=== PATIENT | male | born 1960 | race Caucasian/White ===

== ENCOUNTER 2016-08-27 01:35 | Day surgery (SDC) | payer OTHER ==
[2016-08-27] VITALS (18 sets, daily range): BP systolic 107–137; BP diastolic 70–87; PULSE 57–82; RESP 12–20; O2SAT 95–100
[~2016-08-27] VITALS: Ht 190.5 cm; Wt 84.0 kg
[~2016-08-27 01:35] MED LIST: ASPI-973 PO; BENZ0.5T3 PO; HAL5 PO; LORA2TAB PO; METO25TA99 PO; PYR50 PO; RES30 PO; SIMV80TA4 PO; THIO2CAP2 PO; TRAZ-115 PO; ZIPR40CA24 PO
[2016-08-27] MEDS ORDERED: 0.9% Sodium Chloride 1,000 ML ONE (06:27)
[2016-08-27 07:09] LABS: BASOPHILS % (AUTO) 0.4 % (0-3); MONOCYTES % (AUTO) 10.7 % (4-12); Mean Corpuscular Hemoglobin 31.7 pg (27.0-35.0); Mean Corpuscular Volume 90.6 fL (81-100); NEUTROPHILS % (AUTO) 61.4 % (40-74); Platelet Count 196 bil/L (150-400)
[2016-08-27 07:23] LABS: INR 1.03 ratio
--- NOTE | 2016-08-27 07:57 | NUR ---
YIN Patient to [facility] bed 3 at 0700. Mother at bedside. Patient denies pain. HL X 2 placed and labs obtained. ECG 12 complete. Consent to be obtained pr MD. History and medications reviewed. Pre-procedure teaching done and questions answered.
[2016-08-27] MEDS ORDERED: Heparin 1,000 Units/500 mL NS Premix IV ONE (08:35)
[2016-08-27] MEDS ORDERED: fentaNYL-PF 50 mCg/mL 2 mL Inj ONE (08:36)
[2016-08-27] MEDS ORDERED: Heparin 5,000 Units/500 mL NS Premix IV ONE (08:37)
[2016-08-27] MEDS ORDERED: Nitroglycerin 50,000 mcg/250 mL D5W Premix IV ONE (09:05)
[2016-08-27] MEDS ORDERED: Heparin 1,000 Unit/mL 10 mL Inj ONE (09:05)
--- NOTE | 2016-08-27 10:41 | CS94 ---
[place] [address] DIAGNOSTIC CARDIAC CATHETERIZATION PATIENT: LORI VALE : 1960 MR#: [id number] ADMIT: 08/27/2016 JOB ID: [id number] SERVICE DATE: 08/27/2016 PROCEDURE: 1. Left heart catheterization. 2. Selective left and right coronary angiography. 3. Left ventricular hemodynamics. INDICATIONS: The patient came in with atypical chest pain with a known history of coronary artery disease, status post NE, status post angioplasty of the right coronary artery. The patient underwent stress testing, which demonstrated a reversible perfusion defect in the anterior, anteroseptal and septal segments. Therefore, the patient was scheduled for coronary angiography. CONSENT: The patient was explained the risks, benefits and alternatives of the procedure. Informed signed consent was obtained and placed in the chart. The patient verbalized understanding prior to proceeding with the procedure. DESCRIPTION OF PROCEDURE: The patient was brought to the catheterization laboratory and placed on the catheterization table. Both groins were prepped and draped in the usual sterile manner. Then, 1% lidocaine was infiltrated into the right groin area. Subsequently, a 6-Romansh arterial sheath was placed in the right femoral artery using a standard modified Seldinger technique. FL4 catheter was used to engage the left main coronary artery. Multiple views of left coronary artery were obtained in multiple projections. FR4 catheter was used to engage the right coronary artery. Multiple views of right coronary artery were obtained in multiple projections. A pigtail catheter was advanced over the guidewire and placed in the left ventricle. Left ventricular hemodynamics were obtained. Subsequently, a pullback maneuver was performed to assess for any LV to aortic gradient. No gradient was noted. TOTAL CONTRAST USED: 50 cc. TOTAL FLUOROSCOPY TIME: 1.8 minutes. HEMODYNAMICS: The left ventricular end-diastolic pressure was 9-12 mmHg. There was no left ventricular to aortic gradient. CORONARY ANGIOGRAPHY: Left main coronary artery demonstrates mild luminal irregularities. It trifurcates into left anterior descending artery, ramus and the left circumflex coronary artery. The left anterior descending artery has mild luminal irregularities with mild stenosis of 20% to 30% in the proximal and mid segments. The diagonal branch demonstrates 40% to 50% stenosis. The ramus intermedius has a high-grade 95% stenosis in the mid segment. The left circumflex coronary artery has about a 40-50% stenosis in the proximal segment before it bifurcates into obtuse marginal branch. The right coronary artery has a widely patent stent in the proximal segment. Diffuse luminal irregularities are noted in the proximal, mid and distal segments. The posterolateral and PDA branches are free of any significant stenosis. The patient has a right dominant system. FINDINGS: 1. High-grade stenosis in the ramus intermedius. 2. Widely patent stent in the proximal left anterior descending. 3. Mild disease noted in the left anterior descending artery and left circumflex coronary artery. PLAN: The case was transferred over to Dr. Man for percutaneous intervention of the ramus intermedius. COMPLICATIONS: None. RYDER
--- NOTE | 2016-08-27 10:46 | DI95 ---
[place] [address] INTERVENTIONAL CARDIAC CATHETERIZATION PATIENT: LORI VALE : 1960 MR#: [id number] ADMIT: 08/27/2016 JOB ID: [id number] DATE OF PROCEDURE: 08/27/2016 PATIENT PROFILE: The patient is a 56 years old male with angina pectoris and abnormal stress test. PROCEDURE: Balloon angioplasty and stenting to the ramus intermedius. VASCULAR CLOSURE DEVICE: StarClose. COMPLICATIONS: None. METHOD: Following diagnostic coronary angiogram performed by Dr. Meraz, heparin 100 units/kg and ticagrelor 180 mg were given. A 6-Mongolian CLS4 guide was advanced to the left coronary ostium. A Runthrough wire was placed inside the ramus intermedius artery. The lesion was pre-dilated with a 2.0 x 12 mm balloon. A Xience 2.25 x 15 mm stent was placed inside the lesion and deployed at 12 atmospheres for 30 seconds. Nitroglycerin 100 mcg was given intracoronary. Final angiogram was obtained. Right femoral angiogram was performed. Following sheath removal, hemostasis was achieved by using a StarClose device. The patient tolerated the procedure well. He was transferred to [facility] in good condition. TOTAL CONTRAST USED: 145 cc. TOTAL FLUOROSCOPY TIME: 4 minutes. RESULTS: Successful balloon angioplasty and stenting to the tight culprit ramus intermedius lesion by deploying one drug eluting stent (2.25 x 15 mm) to achieve an excellent angiographic result with ELHAM-3 flow distally. RYDER
[2016-08-27] MEDS ORDERED: Ondansetron 2 mg/mL 2 mL Inj IVPUSH PRN (13:10)
[2016-08-27] MEDS ORDERED: 0.9% Sodium Chloride 400 ML (4 HRS) IV ONE (13:10)
[2016-08-27] MEDS ORDERED: 0.9% Sodium Chloride 250 ML BOLUS IV PRN (13:10)
[2016-08-27] MEDS ORDERED: Sodium Chloride LOK Flush 10 mL Syringe IVFLUSH PRN (13:10)
[2016-08-27] MEDS ORDERED: Atropine 1 mg/10 mL (Code) Syringe IVPUSH PRN (13:10)
--- NOTE | 2016-08-27 13:51 | NUR ---
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 Mother waiting at bedside. Patient awake and oriented on arrival and denies pain. Right groin star close without bleeding or hematoma. Pedal pulses present. Taking PO, void prior to procedure no void post procedure in [facility]. Taking PO and ate lunch. Transferred by bed to room 2020 by bed at 1230. Report to receiving RN.
[2016-08-27] MEDS ORDERED: LORazepam 2 mg Tablet PO PRN (15:15)
[2016-08-27] MEDS: 0.9% Sodium Chloride 1,000 ML IV SCH ×2 (16:58→16:59)
--- NOTE | 2016-08-27 17:56 | NUR ---
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 Minimal drainage. The pt has known anxiety, and is verbalizing anxious thoughts. Medicated with 2mg lorazepam with good results. The POC is to keep overnight, then discharge home tomorrow.
[2016-08-28 00:14] VITALS: BP 128/80; PULSE 65; RESP 18; O2SAT 96
[2016-08-28] MEDS: 0.9% Sodium Chloride 1,000 ML IV SCH (02:30)
[2016-08-28 03:49] VITALS: BP 124/81; PULSE 55; RESP 18; O2SAT 96
--- NOTE | 2016-08-28 04:09 | NUR ---
Restful night Patient was made comfortable in bed and was given a sleeping pill. Patient reported getting some sleep and feeling well. Patients groin site is healing well and no signs of bleeding are present.
[2016-08-28 06:07] VITALS: PULSE 76
[2016-08-28 06:18] LABS: Mean Corpuscular Hemoglobin 31.3 pg (27.0-35.0); Mean Corpuscular Volume 91.9 fL (81-100)
[2016-08-28 08:05] VITALS: BP 137/82; PULSE 75; RESP 14; O2SAT 97
[2016-08-28] MEDS ORDERED: MeTOProlol XL 25 mg ER24 Tablet PO SCH (08:30)
[2016-08-28 09:30] VITALS: PULSE 65
[2016-08-28] MEDS ORDERED: CLOP75TA28 PO (11:00)
--- NOTE | 2016-08-28 11:13 | PCM.DIMED ---
Discharge Instructions Date of Service Aug 28, 2016 Dates of Hospitalization 08/27/2016 Discharge Diagnosis Discharge Diagnosis Coronary Artery Disease Diet Low fat, Low Sodium, Heart Healthy Activity Limited until seen by PCP Call your provider Fever or Chills, Shortness of breath, Bleeding, Chest pain, Other (Pain at the catheter entry site not relieved with NSAIDS. Pain numbness and tingling distal to the catheter entry site. signs of infection.) Patient Instructions Follow-up with PCP in: 1 week Mid-level Provider (F9): Ricky Licona PA-C Follow-up with Mid-level in: 1 week Ricky Licona PA-C Aug 28, 2016 11:13
--- NOTE | 2016-08-30 09:52 | DIS ---
[address] [address] DISCHARGE SUMMARY PATIENT: LORI VALE : 1960 MR#: [id number] ADMIT: 08/27/2016 JOB ID: [id number] DIS: 08/28/2016 PROCEDURES: 1. Left heart catheterization. 2. Selective left and right coronary angiography. 3. Left ventricular hemodynamics. 4. Balloon angioplasty and stenting to the ramus intermedius artery by deploying one drug-eluting stent. BRIEF HISTORY: The patient came into our office at [facility] with atypical chest pain and a known history of coronary artery disease, status post MS, status post angioplasty of the right coronary artery. He underwent a nuclear perfusion study which demonstrated a reversible perfusion defect in the anterior, anteroseptal and septal regions of the heart. As such, he was scheduled for coronary angiography. HOSPITAL COURSE: After a discussion about the risks and benefits of heart catheterization and percutaneous intervention, the patient was brought into the cath laboratory, and the above-mentioned procedures were carried out. Coronary artery angiography revealed: 1. High-grade stenosis of the ramus intermedius. 2. Widely patent stent in the proximal left anterior descending artery. 3. Mild coronary artery disease in the left anterior descending artery and left circumflex artery. After coronary angiography was performed, the case was transferred to Dr. Man, who performed the above-mentioned intervention. There were no complications. After the intervention, the patient was admitted to the [facility] for observation, where he did well. At discharge, he was alert and oriented. Vital signs were stable. Catheter entry site at the right groin was clean, dry and intact, without signs of infection. There was minimal bruising and no bleeding. I did not appreciate a hematoma. There are +2 pulses at the dorsalis pedis and posterior tibialis arteries bilaterally. DISCHARGE MEDICATIONS: 1. Clopidogrel 25 mg daily. 2. Aspirin 81 mg daily. 3. Benztropine mesylate 1 mg daily. 4. Haloperidol 5 mg daily. 5. Lorazepam 1 mg daily as needed for anxiety. 6. Metoprolol succinate 25 mg daily. 7. Vitamin B6, 400 mg daily. 8. Simvastatin 40 mg daily. 9. Temazepam 30 mg as needed for insomnia. 10. Thiothixene 2-4 mg b.i.d. 11. Trazodone 50 mg at bedtime. 12. Trazodone 40 mg daily. DISPOSITION AND DISCHARGE INSTRUCTIONS: The patient will be discharged to his home and placed under the care of his family and friends, with the following instructions: 1. Limit activity until he follows up in our office at [facility]. 2. Call our office if he experiences fever or chills, shortness of breath, bleeding, chest pain, pain at the catheter entry site not relieved by NSAIDs, pain, numbness and tingling distal to the catheter entry site, signs of infection. 3. Follow up with Ricky Licona PA-C, at [facility] in one week. RYDER
== END 2016-08-28 14:10 | disposition home or self-care (01) ==
LOC: SOUO 01:35 → PCC 12:59 → SOUO 08-28 14:10
PROVIDERS: ATTEND Internal Medicine Cardiovascular Disease
DX: I25.119 Atherosclerotic heart disease of native coronary artery with unspecified angina pectoris (principal); Z95.5 Presence of coronary angioplasty implant and graft; I25.2 Old myocardial infarction; E78.5 Hyperlipidemia, unspecified; Z87.898 Personal history of other specified conditions; Z79.82 Long term (current) use of aspirin
CPT/HCPCS: 36415; 80048; 85025; 85027; 85610; 93005; 93458; 99152; 99153; C1725; C1760; C1769; C1874; C1887; C9600; J1644; J2060; J2250; J3010; J7030; Q9967